=== PATIENT | female | born 1945 | race Caucasian/White ===

== ENCOUNTER → 2018-03-05 | Outpatient (CLI) | payer OTHER ==
[~2018-03-05] MED LIST: ASPIRIN EC81 M1 PO; MULTI-VITAMIN1 EAC5 PO; NEXIUM40 MG PO; PLAVIX 75 MG TA75 M1 PO; PRAVACHOL40 MG PO; RESTASIS1 EACH OPHTHALMIC; TOPROL XL25 MG PO; TYLENOL325 MG PO; VITAMIN D34000 UNIT PO
== END ==
LOC: RAD 12:40
PROC: 4A0 Measurement and Monitoring, Physiological Systems, Measurement (ICD-10-PCS; principal; 2018-03-05)
DX: M41.85 Other forms of scoliosis, thoracolumbar region (principal); M43.8X5 Other specified deforming dorsopathies, thoracolumbar region; J98.4 Other disorders of lung; R91.8 Other nonspecific abnormal finding of lung field; T17.890D Other foreign object in other parts of respiratory tract causing asphyxiation, subsequent encounter; I87.8 Other specified disorders of veins